=== PATIENT | male | born 1965 | race African-American/Black ===

== ENCOUNTER 2021-12-16 07:00 | Emergency (ER) | payer BC ==
[~2021-12-16] VITALS: Ht 200.7 cm; Wt 96.6 kg
[2021-12-16] MEDS ORDERED: PREDNISONE50 MG PO (07:19)
[2021-12-16] MEDS ORDERED: BENADRYL25 M1 PO (07:19)
[2021-12-16] MEDS ORDERED: PEPCID20 MG PO (07:19)
[2021-12-16] MEDS ORDERED: PREDNISONE 20 MG TAB PO ONE (07:30)
== END 2021-12-16 07:41 | disposition home or self-care (01) ==
LOC: FSED 07:20
DX: R21 Rash and other nonspecific skin eruption (principal); I10 Essential (primary) hypertension
CPT/HCPCS: 85025; 99282; J7512

== ENCOUNTER 2024-02-12 06:27 | Emergency (ER) | payer BC ==
[~2024-02-12] VITALS: Ht 200.7 cm; Wt 95.3 kg
[~2024-02-12 06:27] MED LIST: BENADRYL25 M1 PO; GABAPENTIN300 MG PO; PEPCID20 MG PO; PREDNISONE50 MG PO
[2024-02-12 06:30] VITALS: PULSE 67; RESP 18; TEMP 98.4
[2024-02-12] MEDS: KETOROLAC TROMETHAMINE 30 MG/ML VIAL IM ONE (07:26)
[2024-02-12] MEDS: HYDROCODONE/APAP 5MG-325MG TAB PO ONE (07:27)
[2024-02-12] MEDS: ONDANSETRON HCL 4 MG ORAL DISINTEGRATING TAB PO ONE (07:28)
[2024-02-12] MEDS ORDERED: IBUPROFEN200 MG PO (07:31)
[2024-02-12] MEDS ORDERED: ACETAMINOPHEN-1 EAC4 PO (07:31)
[2024-02-12 08:41] VITALS: BP 128/76; PULSE 70; RESP 17; TEMP 98.2; O2SAT 98
== END 2024-02-12 08:00 | disposition home or self-care (01) ==
LOC: FSED 06:53
DX: M25.552 Pain in left hip (principal); M54.32 Sciatica, left side; I10 Essential (primary) hypertension; E78.5 Hyperlipidemia, unspecified
CPT/HCPCS: 73502; 99283; J1885; Q0162